=== PATIENT | female | born 1935 | race Caucasian/White ===

== ENCOUNTER 2016-06-15 17:04 | Emergency (ER) | payer MEDICARE, OTHER ==
[~2016-06-15] VITALS: Ht 165.1 cm; Wt 87.0 kg
[~2016-06-15 17:04] MED LIST: CENTTAB9 PO; DOXY100T PO; METO25CR PO; OMPR20CCR PO; SM A81CH PO; TRAM50 PO
[2016-06-15 17:08] VITALS: PULSE 87; RESP 16; TEMP 99.7; O2SAT 95
[2016-06-15] MEDS ORDERED: METO25TA3 PO (17:24)
[2016-06-15] MEDS ORDERED: MAGN250T11 PO (17:24)
[2016-06-15] MEDS ORDERED: ASPI81TA81 PO (17:24)
[2016-06-15] MEDS ORDERED: PRIL20CA9 PO (17:24)
[2016-06-15] MEDS ORDERED: ALPR.25 PO (17:24)
[2016-06-15] MEDS ORDERED: [UNRECOGNIZED DRUG - CODE] PO (17:24)
[2016-06-15] MEDS ORDERED: LACTCAP8 PO (17:24)
[2016-06-15 17:25] VITALS: BP 154/78; PULSE 85; RESP 16; O2SAT 97
[2016-06-15 18:07] VITALS: BP_SYST 15; BP_SYST 156; BP_DIAS 83; PULSE 77; RESP 16; O2SAT 95
--- NOTE | 2016-06-15 18:23 | PD ---
HPI . 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 She states that he is having no pain. She denies any other neurological symptoms. She does state that she noticed that her left upper lid was a little bit swollen when she was looking in the mirror. She took an antihistamine with no relief. She then called her interactive designer who instructed her to come to the emergency department for further evaluation. [facility] Past Medical History Anxiety: Yes Diminished Hearing: No Hypertension: Yes Immunizations Current: Yes Tetanus Vaccination: Never Vaccinated Influenza Vaccination: Yes ?: Not Past Surgical History Appendectomy: Yes Hysterectomy: Yes Tonsillectomy: Yes (T&A) Social History Alcohol Use: Yes (WINE USUALLY DAILY) Tobacco Use: No (QUIT 1984) Substance Use: No Allergies-Medications (Allergen,Severity, Reaction): Coded Allergies: Codeine (Verified Allergy, Severe, Swelling, 06/15/16) Swelling at the side , readness Demerol (Verified Allergy, Intermediate, Swelling, 06/15/16) Swelling at the side , readness Sulfa (Verified Allergy, Intermediate, Vomiting, 06/15/16) Reported Meds & Prescriptions Reported Meds & Active Scripts Active Reported Xanax (Alprazolam) 0.25 Mg Tab 0.25 Mg PO Q4H PRN Aspir-81 (Aspirin) 81 Mg Tabdr 1 Tab PO TWICE A WEEK [Arens2] 1 Tab PO DAILY Magnesium Oxide 250 Mg Tab 250 Mg PO DAILY Probiotic (Lactobacillus Acidophilus) 1 Cap Cap 1 Cap PO DAILY Prilosec (Omeprazole) 20 Mg Cap 20 Mg PO DAILY Metoprolol Tartrate 25 Mg Tab 25 Mg PO BID Review of Systems Except as stated in HPI: all other systems reviewed are Neg Eyes: Positive: Blind Spots (upper visual field out of the left eye), No: Diploplia, Photophobia, Drainage, Redness, Pain, Tearing HENT: Positive: Headaches (she reports a very mild headache) Gastrointestinal: No: Nausea Neurologic: No: Weakness, Dizziness, Syncope, Focal Abnormalities, Coordination Problem Physical Exam Narrative GENERAL: Patient is awake and alert and in no acute distress. SKIN: Warm and dry. HEAD: Atraumatic. Normocephalic. EYES: Pupils equal and round and reactive to light. Her retina has normal vascular markings. On direct confrontation of her visual whelan, no deficit is noted. ENT: No nasal bleeding or discharge. Mucous membranes pink and moist. NECK: Trachea midline. Neck is supple NEUROLOGICAL: Awake and alert. No obvious cranial nerve deficits. Motor grossly within normal limits. Normal speech. PSYCHIATRIC: Appropriate mood and affect; insight and judgment normal. Data Data Last Documented VS Vital Signs Date Time Temp Pulse Resp B/P Pulse Ox O2 Delivery O2 Flow Rate FiO2 06/15/16 18:07 77 16 156/83 95 Room Air 06/15/16 17:[address] Brain W/O Iv Contrast(Rout) (06/15/16 17:36) [facility] Medical Decision Making Medical Screen Exam Complete: Yes Emergency Medical Condition: Yes Differential Diagnosis Differential diagnosis includes but is not limited to retinal detachment, temporal arteritis, optic vein or optic artery thrombus. Narrative Course Patient presented complaining with grayness in her upper visual field in the left eye only. I have ordered a CT for a mass or hemorrhage as a cause of her symptoms. Head CT is negative. Physician Communication Physician Communication I spoke with Dr. Rodriguez from [facility]. He feels that further evaluation by an senior datastage developer can wait until Friday. Diagnosis Primary Impression: Homonymous hemianopsia Qualified Code: H53.462 - Homonymous hemianopsia, left Referrals: Karlos East MD 3 days Disposition: DISCHARGE HOME Condition: Stable Jie Braun MD Jun 15, 2016 18:23
--- NOTE | 2016-06-15 19:15 | RADHPO ---
EXAM DATE/TIME: 06/15/2016 18:54 [place] COMPARISON: No previous studies available for comparison. INDICATIONS : Unable to see upper field of vision in left eye today. RADIATION DOSE: 59.65 CTDIvol (mGy) MEDICAL HISTORY : Hypertension. SURGICAL HISTORY : Hysterectomy. ENCOUNTER: Initial ACUITY: 1 day PAIN SCALE: 0/10 LOCATION: Bilateral head TECHNIQUE: Multiple contiguous axial images were obtained of the head. Using automated exposure control and adj ustment of the mA and/or kV according to patient size, radiation dose was kept as low as reasonably a chievable to obtain optimal diagnostic quality images. FINDINGS: CEREBRUM: The ventricles are normal for age. No evidence of midline shift, mass lesion, hemorrhage or acute in farction. No extra-axial fluid collections are seen. POSTERIOR FOSSA: The cerebellum and brainstem are intact. The 4th ventricle is midline. The cerebellopontine angle i s unremarkable. EXTRACRANIAL: The visualized portion of the orbits is intact. SKULL: The calvaria is intact. No evidence of skull fracture. CONCLUSION: Negative noncontrast CT brain. Chad Burch MD on June 15, 2016 at 19:13 Board Certified Radiologist. This report was verified electronically.
[2016-06-15 19:50] VITALS: BP 143/75
[2016-06-16] MEDS ORDERED: PRESCAP5 PO (16:07)
== END 2016-06-15 19:54 | disposition home or self-care (01) ==
LOC: PHED 17:04
DX: H53.462 Homonymous bilateral field defects, left side (principal); I10 Essential (primary) hypertension
CPT/HCPCS: 70450